=== PATIENT | male | born 1950 | race Caucasian/White ===

== ENCOUNTER 2017-08-18 20:20 | Emergency (ER) | payer BC, MEDICARE ==
[~2017-08-18] VITALS: Ht 167.6 cm; Wt 93.0 kg
[~2017-08-18 20:20] MED LIST: ASPI325B PO; CETI5 PO; FISH1000 PO; HYDACE5 PO; LISI20 PO; PROM25 PO
[2017-08-18] MEDS ORDERED: OMEPRAZOLE MAGN20 MG PO (20:39)
[2017-08-18 21:02] LABS: BASOPHILS ABSOLUTE AUTO 0.05 K/mm3 (0.00-0.23); BASOPHILS PERCENT AUTO 0 % (0-2); EOSINOPHILS ABSOLUTE AUTO 0.27 K/mm3 (0.00-0.68); EOSINOPHILS PERCENT AUTO 2 % (0-6); Hematocrit 42.5 % (37.0-53.0); Hemoglobin 13.9 g/dL (13.5-17.5); IMMATURE GRAN ABSOLUTE AUTO 0.05 K/mm3 (0.00-0.10); IMMATURE GRAN PERCENT AUTO 0 % (0-1); LYMPHOCYTES ABSOLUTE AUTO 1.86 K/mm3 (0.84-5.20); LYMPHOCYTES PERCENT AUTO 15 % (21-46); MONOCYTES ABSOLUTE AUTO 1.09 K/mm3 (0.16-1.47); MONOCYTES PERCENT AUTO 9 % (4-13); Mean Corpuscular HGB 29.1 pg (26.0-34.0); Mean Corpuscular HGB Conc 32.7 g/dL (31.5-36.5); Mean Corpuscular Volume 89 fL (80-100); Mean Platelet Volume 10.4 fL (9.1-12.4); NEUTROPHILS ABSOLUTE AUTO 9.29 K/mm3 (1.96-9.15); NEUTROPHILS PERCENT AUTO 74 % (41-73); Platelet Count 190 K/mm3 (150-400); RDW Coefficient Variation 14.6 % (11.7-14.2); RDW Standard Deviation 47.7 fL (35.1-46.3); Red Blood Cell Count 4.77 M/mm3 (4.30-5.90); White Blood Cell Count 12.61 K/mm3 (4.00-11.30)
[2017-08-18 21:16] LABS: Alanine Aminotransfer (ALT/SGP 35 U/L (12-78); Albumin, Blood 3.5 g/dL (3.4-5.0); Albumin/Globulin Ratio 0.9 (0.8-1.8); Alk Phos 75 U/L (50-136); Anion Gap 9 mmol/L (6-16); Aspartate Aminotrans (AST/SGOT 27 U/L (12-37); Bilirubin, Total 0.6 mg/dL (0.1-1.0); Blood Urea Nitrogen 20 mg/dL (8-24); Bun/Creatinine Ratio 19.4 (12.0-20.0); C-REACTIVE PROTEIN, EXT RANGE 0.512 mg/dL (0.000-0.300); CO2, Blood 23 mmol/L (21-32); Calcium, Blood 8.7 mg/dL (8.5-10.1); Chloride, Blood 107 mmol/L (98-108); Creatinine, Blood 1.03 mg/dL (0.60-1.20); Glomerular Filtration Rate >60 (60-); Glucose, Blood 129 mg/dL (70-99); Sodium, Blood 139 mmol/L (136-145); Total Protein, Blood 7.5 g/dL (6.4-8.2)
[2017-08-18 23:04] LABS: Body Fluid Crystals NEG (NEGATIVE)
[2017-08-18 23:23] LABS: BODY FLUID RBC 0.087 (0-0); WBC Count, Synovial Fluid 273 /mm3 (0-180)
[2017-08-18 23:24] LABS: Appearance, Synovial Fluid Cloudy (Clear); Color, Synovial Fluid Red (None-P Yel); RBC Count, Synovial Fluid 87000 /mm3 (0-0)
[2017-08-18 23:45] LABS: Eos, Synovial Fluid 3 % (0-2); Lymphs, Synovial Fluid 8 % (0-15); Monocytes/Macrophages, Synovia 10 % (0-65); Neutrophils, Synovial Fluid 79 % (0-24)
== END 2017-08-18 23:52 | disposition home or self-care (01) ==
LOC: ER 20:20
PROVIDERS: Emergency Medicine
DX: M25.562 Pain in left knee (principal); Z79.82 Long term (current) use of aspirin; Z79.899 Other long term (current) drug therapy; Z79.891 Long term (current) use of opiate analgesic; I10 Essential (primary) hypertension; Z87.891 Personal history of nicotine dependence
CPT/HCPCS: 20610; 36415; 73562-LT; 80053; 85025; 85651; 86140; 89051; 89060; 99283

== ENCOUNTER → 2021-04-16 | Outpatient (CLI) | payer BC ==
[~2021-04-16] MED LIST changes: +OMEPRAZOLE MAGN20 MG PO
[2021-04-16 11:02] LABS: Microalb/Creat Ratio UR, Rand 60.909 mg/g (0.000-30.000); Microalbumin, Random Urine 87.1 mg/L (0.000-20.000)
== END ==
LOC: LAB SHORT 07:52
PROVIDERS: Physician Assistant
DX: R94.4 Abnormal results of kidney function studies (principal)
CPT/HCPCS: 82043; 82570

== ENCOUNTER → 2022-03-06 | Outpatient (CLI) | payer BC ==
[2022-03-06 14:16] LABS: Creatinine, Urine Random 66.1 mg/dL (27.00-270.00); Microalb/Creat Ratio UR, Rand 65.658 mg/g (0.000-30.000); Microalbumin, Random Urine 43.4 mg/L (0.000-20.000)
== END ==
LOC: LAB SHORT 09:20 → LAB 09:20 → LAB SHORT 10:36
PROVIDERS: Physician Assistant
DX: R94.4 Abnormal results of kidney function studies (principal)
CPT/HCPCS: 82043; 82570

== ENCOUNTER 2024-05-09 08:34 | Emergency (ER) | payer OTHER ==
[~2024-05-09] VITALS: Ht 175.3 cm; Wt 79.4 kg
[2024-05-09] MEDS ORDERED: Triamcinolone Inj Susp 40 MG / ML 1ML Vial IM ONE (09:45)
[2024-05-09 10:23] VITALS: BP 163/71
== END 2024-05-09 11:16 | disposition home or self-care (01) ==
LOC: ER 08:34
DX: L23.7 Allergic contact dermatitis due to plants, except food (principal); I10 Essential (primary) hypertension
CPT/HCPCS: 96372; 99282-25; J3301